=== PATIENT | female | born 1970 | race American Indian/Alaskan Native ===

== ENCOUNTER 2019-01-21 21:18 | Emergency (ER) | payer SELFPAY ==
--- NOTE | 2019-01-21 21:51 | Event Note ---
ED Screening Note Date of service: 01/21/19 Time: 21:47 ED Screening Note: This is a 48 y.o. F. that presents to the ER with cough, body aches, and headache for 4 days. PMH HTN Currently taking theraflu with no improvement of symptoms. This initial assessment/diagnostic orders/clinical plan/treatment(s) is/are subject to change based on patients health status, clinical progression and re- assessment by fellow clinical providers in the ED. Further treatment and workup at subsequent clinical providers discretion. Patient/guardian urged not to elope from the ED as their condition may be serious if not clinically assessed and managed. Initial orders include:
[2019-01-21] MEDS ORDERED: IBUPROFEN 800 MG TAB PO ONE (22:23)
--- NOTE | 2019-01-21 22:42 | Emergency Department Report ---
- General Chief Complaint: Upper Respiratory Infection Stated Complaint: BODYACHES/COUGH Time Seen by Provider: 01/21/19 21:46 Source: patient Mode of arrival: Ambulatory Limitations: No Limitations - History of Present Illness Initial Comments: This is a 48 y.o. F. that presents to the ER with cough, body aches, and headache for 4 days. Pt states she has been taking theraflu at home with only temporary improvement in symptoms. cough is productive clear yellow. There is no fever. Pt denies n/v. Pt does have hx of HTN. MD Complaint: cough, sore throat, rhinorrhea, nasal congestion Onset/Timin -: week(s) Severity: moderate Severity scale (0 -10): 5 Quality: aching Consistency: intermittent Improves With: nothing Worsens With: activity Context: sick contacts Associated Symptoms: chills, headache, rhinorrhea, nasal congestion, sore throat, cough, other (body aches) Treatments Prior to Arrival: other (Theraflu ) - Related Data Home Medications Medication Instructions Recorded Confirmed Last Taken Lisinopril [Zestril] 10 mg PO QDAY 01/23/13 01/23/13 Unknown Previous Rx's Medication Instructions Recorded Last Taken Type Azithromycin [Zithromax Z-MIESHA] 250 mg PO DAILY #6 tab 01/22/19 Unknown Rx Ibuprofen [Motrin 800 MG tab] 800 mg PO Q8HR PRN #30 tablet 01/22/19 Unknown Rx guaiFENesin/CODEINE [Robitussin AC] 5 ml PO TID PRN #120 ml 01/22/19 Unknown Rx hydroCHLOROthiazide [HCTZ] 25 mg PO DAILY #30 tablet 01/22/19 Unknown Rx Allergies Allergy/AdvReac Type Severity Reaction Status Date / Time No Known Allergies Allergy Unverified 01/23/13 10:33 ED Review of Systems ROS: Stated complaint: BODYACHES/COUGH Other details as noted in HPI Constitutional: chills Eyes: denies: eye pain, eye discharge, vision change ENT: throat pain, congestion. denies: ear pain Respiratory: cough. denies: shortness of breath, wheezing Cardiovascular: denies: chest pain Endocrine: no symptoms reported Gastrointestinal: denies: abdominal pain, nausea, diarrhea Genitourinary: denies: urgency, dysuria, discharge Musculoskeletal: denies: back pain, joint swelling, arthralgia Skin: denies: rash, lesions Neurological: denies: headache, weakness, paresthesias Psychiatric: denies: anxiety, depression Hematological/Lymphatic: denies: easy bleeding, easy bruising ED Past Medical Hx - Past Medical History Hx Hypertension: Yes - Social History Smoking Status: Never Smoker - Medications Home Medications: Home Medications Medication Instructions Recorded Confirmed Last Taken Type Lisinopril [Zestril] 10 mg PO QDAY 01/23/13 01/23/13 Unknown History Azithromycin [Zithromax Z-MIESHA] 250 mg PO DAILY #6 tab 01/22/19 Unknown Rx Ibuprofen [Motrin 800 MG tab] 800 mg PO Q8HR PRN #30 tablet 01/22/19 Unknown Rx guaiFENesin/CODEINE [Robitussin AC] 5 ml PO TID PRN #120 ml 01/22/19 Unknown Rx hydroCHLOROthiazide [HCTZ] 25 mg PO DAILY #30 tablet 01/22/19 Unknown Rx ED Physical Exam - General Limitations: No Limitations General appearance: alert, in no apparent distress - Head Head exam: Present: atraumatic, normocephalic - Eye Eye exam: Present: normal appearance, PERRL, EOMI. Absent: conjunctival injection Pupils: Present: normal accommodation - ENT ENT exam: Present: mucous membranes moist, TM's normal bilaterally, normal external ear exam - Expanded ENT Exam Expanded Ear exam: Present: normal external inspection Throat exam: Positive: tonsillar erythema, tonsillomegaly, other (uvula midline no stridor no swelling no exudate no lesions no wheezing clear pos nasal drip ). Negative: tonsillar exudate, R peritonsillar mass, L peritonsillar mass - Neck Neck exam: Present: normal inspection, full ROM, lymphadenopathy. Absent: tenderness, meningismus, thyromegaly - Respiratory Respiratory exam: Present: normal lung sounds bilaterally. Absent: respiratory distress, wheezes, rales, rhonchi, stridor, chest wall tenderness, decreased breath sounds - Cardiovascular Cardiovascular Exam: Present: regular rate, normal rhythm, normal heart sounds. Absent: systolic murmur, diastolic murmur, rubs, gallop - GI/Abdominal GI/Abdominal exam: Present: soft, normal bowel sounds. Absent: distended, tenderness, bruit, hernia - Rectal Rectal exam: Present: deferred - Extremities Exam Extremities exam: Present: normal inspection, full ROM, normal capillary refill. Absent: tenderness - Back Exam Back exam: Present: normal inspection, full ROM. Absent: tenderness, CVA tenderness (R), CVA tenderness (L), rash noted - Neurological Exam Neurological exam: Present: alert, oriented X3, CN II-XII intact, normal gait - Psychiatric Psychiatric exam: Present: normal affect, normal mood - Skin Skin exam: Present: warm, dry, intact, normal color. Absent: rash ED Course Vital Signs 01/21/19 01/21/19 01/21/19 21:23 21:47 23:45 Temperature 98.9 F 98.4 F Pulse Rate 75 Respiratory 20 Rate Blood Pressure 188/106 Blood Pressure [Left] O2 Sat by Pulse 95 Oximetry 01/22/19 01:53 Temperature 97.9 F Pulse Rate 69 Respiratory 18 Rate Blood Pressure Blood Pressure 138/94 [Left] O2 Sat by Pulse 99 Oximetry - Reevaluation(s) Reevaluation #1: cxr: mild cardiomegaly, likely pulmonary edema, there is no cp, no sob pt denies hx of cad, does have hx of htn, plan: cbc, cmp, trop, ekg, bnp. pt rx lisinopril for bp however has not taken in 8 yrs per patient. pt denies sob , no cp, no sob, no back pain , dizziness no lightheadness, no edema. lung sounds are clear bilat. 01/22/19 00:38 01/22/19 00:43 ED Medical Decision Making - Lab Data Result diagrams: 01/22/19 00:50 01/22/19 00:50 Labs 01/21/19 01/22/19 01/22/19 23:22 00:50 00:50 WBC 5.0 RBC 4.83 Hgb 13.5 Hct 41.6 MCV 86 MCH 28 MCHC 32 RDW 16.5 H Plt Count 222 Sodium 139 Potassium 4.3 Chloride 101.6 Carbon Dioxide 27 Anion Gap 15 BUN 14 Creatinine 0.8 Estimated GFR > 60 BUN/Creatinine Ratio 18 Glucose 102 H Calcium 9.0 Total Bilirubin 0.20 AST 24 ALT 18 Alkaline Phosphatase 78 Troponin T < 0.010 NT-Pro-B Natriuret Pep 323.4 Total Protein 7.6 Albumin 4.0 Albumin/Globulin Ratio 1.1 Urine HCG, Qual Negative - EKG Data EKG shows normal: sinus rhythm, axis, intervals, QRS complexes, ST-T waves Rate: normal - EKG Data When compared to previous EKG there are: previous EKG unavailable Interpretation: normal EKG (NSR no ST elevated MD, ekg interp be ed attending ) - Radiology Data Radiology results: report reviewed, image reviewed Findings [facility] [address] [place] [address] XRay Report Signed Patient: LOUISA VELA MR#: [id number] : 1970 Acct:[id number] Age/Sex: 48 / F ADM Date: 01/21/19 Loc: ED Attending Dr: Ordering Physician: FATUMA MARC NP Date of Service: 01/21/19 Procedure(s): XR chest routine 2V Accession Number(s): [id number] cc: FATUMA MARC NP Fluoro Time In Minutes: CHEST 2 VIEWS INDICATION / CLINICAL INFORMATION: cough. COMPARISON: 11/03/2007 FINDINGS: SUPPORT DEVICES: None. HEART / MEDIASTINUM: Interval increase in the heart size, mild cardiomegaly. Pulmonary vascularity is prominent. LUNGS / PLEURA: Mild interstitial disease. No pneumothorax. ADDITIONAL FINDINGS: No significant additional findings. IMPRESSION: 1. Mild cardiomegaly with interstitial opacity likely representing pulmonary edema. Signer Name: Gui Medina MD Signed: 01/22/2019 12:29 AM Workstation Name: [id number] Transcribed By: MT Dictated By: Gui Medina MD Electronically Authenticated By: Gui Medina MD Signed Date/Time: 01/22/1928 DD/ TD/TT: - Medical Decision Making CXR: ? pulmonary edema versus infiltrate , pt states symptoms improved, with ibuprofen. denies cp there is no sob, no n/v no back pain no diaphoresis no wheezing no stridor , heart score is: 0, KARRIE: 0 plan, tx for bronchitis, URI: albuterol inhaler, Azithromycin, ibuprofen, cheratusin , hctz, follow up with pcp in 2-[address] Valentin . Critical care attestation.: If time is entered above; I have spent that time in minutes in the direct care of this critically ill patient, excluding procedure time. ED Disposition Clinical Impression: Bronchitis URI (upper respiratory infection) Qualifiers: URI type: unspecified viral URI Qualified Code(s): J06.9 - Acute upper respiratory infection, unspecified Disposition: DC- TO HOME OR SELFCARE Is pt being admited?: No Does the pt Need Aspirin: No Condition: Stable Instructions: Chronic Bronchitis (ED), Upper Respiratory Infection (ED) Prescriptions: hydroCHLOROthiazide [HCTZ] 25 mg PO DAILY #30 tablet Ibuprofen [Motrin 800 MG tab] 800 mg PO Q8HR PRN #30 tablet PRN Reason: pain fever guaiFENesin/CODEINE [Robitussin AC] 5 ml PO TID PRN #120 ml PRN Reason: Cough Azithromycin [Zithromax Z-MIESHA] 250 mg PO DAILY #6 tab Referrals: CHLOÉ VALENTIN MD [Staff Physician] - 3-5 Days Forms: Work/School Release Form(ED) Time of Disposition: 02:34
[2019-01-21 23:38] LABS: HCG Qualitative,Urine Negative (Negative)
--- NOTE | 2019-01-22 00:34 | XRay Report ---
CHEST 2 VIEWS INDICATION / CLINICAL INFORMATION: cough. COMPARISON: 11/03/2007 FINDINGS: SUPPORT DEVICES: None. HEART / MEDIASTINUM: Interval increase in the heart size, mild cardiomegaly. Pulmonary vascularity is prominent. LUNGS / PLEURA: Mild interstitial disease. No pneumothorax. ADDITIONAL FINDINGS: No significant additional findings. IMPRESSION: 1. Mild cardiomegaly with interstitial opacity likely representing pulmonary edema. Signer Name: Gui Medina MD Signed: 01/22/2019 12:29 AM Workstation Name: [id number]
[2019-01-22 01:06] LABS: Hematocrit 41.6 % (30.3-42.9); Hemoglobin 13.5 gm/dl (10.1-14.3); Mean Corpuscular HGB Conc 32 % (30-34); Mean Corpuscular Volume 86 fl (79-97); Platelet Count 222 K/mm3 (140-440); Red Blood Count 4.83 M/mm3 (3.65-5.03); Red Cell Distribution Width 16.5 % (13.2-15.2)
[2019-01-22 01:25] LABS: Alanine Aminotransferase 18 units/L (7-56); BUN/Creatinine Ratio 18; Blood Urea Nitrogen 14 mg/dL (7-17); Hemolysis Index 46
[2019-01-22 02:46] VITALS: BP 168/94
== END 2019-01-22 02:48 | disposition home or self-care (01) ==
LOC: ED 21:18
DX: J40 Bronchitis, not specified as acute or chronic (principal); J06.9 Acute upper respiratory infection, unspecified; I10 Essential (primary) hypertension; Z79.899 Other long term (current) drug therapy
CPT/HCPCS: 36415; 71046; 80053; 81025; 83880; 84484; 85027; 93005; 93010